=== PATIENT | male | born 1975 | race Caucasian/White ===

== ENCOUNTER 2024-08-04 13:23 | Emergency (ER) | payer SELFPAY ==
[2024-08-04 13:33] VITALS: BP 167/105
--- NOTE | 2024-08-04 15:37 | ED.GENMED ---
History of Present Illness
General
Chief Complaint: Skin Surface Trauma
Time Seen by Provider: 08/04/24 15:14
History of Present Illness
History of Present Illness:
48-year-old male presents the emergency department for evaluation of left thumb and left index finger laceration sustained on a table saw. Last tetanus is up-to-date
Review of Systems
Review of Systems
Allergies reviewed?: Yes
All Other Systems: ROS reviewed and negative except as documented in HPI and ROS
Phy Exam
Physical Exam
Physical Exam:
GEN: Well appearing, NAD, WDWN
HEENT: Oral mucosa moist, no scleral icterus
Cardiac: Regular rate
Lung: No respiratory distress, no tachypnea
MSK: No gross deformity or injuries
Skin: Good color, no pallor or jaundice, no rashes. Avulsion laceration to the left thumb pad with minimal active bleeding. 2 cm linear laceration to the ulnar aspect of the flexor surface of the left DIP joint of the index finger, flexion and
extension at the PIP and DIP joints is fully intact
Neuro: AO x3, moves all extremities freely
Psych: Calm, cooperative
Course
Orders/Labs/Results
Orders:
Orders
08/04/24 13:38
Hand, Left 3 View [CR Hand - Left Min 3 Views] Urgent
Comment:
Reason For Exam: injury
Vital Signs
Initial and Last Documented VS:
Initial Vital Signs
Temp Pulse Resp BP Pulse Ox
98 F 77 16 167/105 96
08/04/24 13:33 08/04/24 13:33 08/04/24 13:33 08/04/24 13:33 08/04/24 13:33
Last Documented Vital Signs
Temp Pulse Resp BP Pulse Ox
98 F 77 16 167/105 96
08/04/24 13:33 08/04/24 13:33 08/04/24 13:33 08/04/24 13:33 08/04/24 13:33
Procedures
Laceration Closure
Left Second Finger:
Status of Wound: clean
Size of Wound in cm: 2
Description of Wound Edges: sharp
Preparation: cleaned with saline
Anesthesia: 1% Lidocaine
Revision/Debridement: routine- no revision
Wound exploration: explored to base- no FB and no tendon involvement
Type of Closure: single layer closure and interrupted sutures
Skin Closure Material: 5-0 nylon
Number of sutures: 5
MDM/Problems Addressed
MDM/Problems Addressed:
The x-ray finding of a fracture to the third finger injury associated with the current presentation. No evidence for acute fractures noted. No indication for antibiotics.
*Critical Care Note
Total Time (30-74mins, 75-104mins- exclusive of procedures): Not Applicable
ED Attending Note
-
Portions of this chart may have been created with voice recognition software.� Occasional wrong word or��sound alike� substitutions may have occurred due to the inherent limitations of voice recognition software.
Discharge Plan
Departure
Patient Disposition: Home (Routine Discharge)
Date of Disposition: 08/04/24
Time of Disposition: 15:37
Patient with high blood pressure during this ER visit?: No
Discharge Problem:
Avulsion of skin of left thumb, Laceration of left index finger
Instructions: Laceration Repair With Stitches (DC)
Referrals:
Waldo De La O MD [Family Provider] -
Activity Restrictions/Additional Instructions:
Keep wound dry for the next 24 hours then his day after that remove the bandage and wash gently with soap and water
Keep covered at all times while working
Use the splint as needed to perform work duties
Suture removal should be in 7 to 10 days
Return if the finger becomes increasingly red and swollen
Interventions
Interventions:
*Risk Screen - Suicide Last Done: 08/04/24 13:33
*Neglect/Abuse Screening Last Done: 08/04/24 13:33
*Nursing Disposition Last Done: 08/04/24 16:13
ED-Skin Assessment Last Done: 08/04/24 15:46
Discharge Date and Time
Discharge Date/Time: 08/04/24 16:13
Print Language: LITHUANIAN
== END 2024-08-04 16:13 | disposition home or self-care (01) ==
LOC: EMR 13:23
PROVIDERS: EMERGENCY PHYSICIAN Emergency Medicine; FAMILY PHYSICIAN Family Medicine
DX: S61.012A Laceration without foreign body of left thumb without damage to nail, initial encounter (principal); S61.211A Laceration without foreign body of left index finger without damage to nail, initial encounter; W31.2XXA Contact with powered woodworking and forming machines, initial encounter
CPT/HCPCS: 12001; 99283; 73130